=== PATIENT | male | born 1965 | race African-American/Black ===

== ENCOUNTER 2018-02-16 15:53 | Emergency (ER) | payer OTHER ==
[~2018-02-16] VITALS: Ht 170.2 cm; Wt 72.4 kg
[~2018-02-16 15:53] MED LIST: LEVAQUIN500 MG PO; MUCINEX1200 MG PO; NAPROSYN500 MG PO; PEPCID20 MG PO; REGLAN10 MG PO; ZANTAC300 MG PO
[2018-02-16 16:19] LABS: HEMATOCRIT 38.1 % (38.0-50.0); HEMOGLOBIN 13.1 G/DL (12.5-16.6); MCH 30.5 PG (29.0-34.0); MCHC 34.4 G/DL (30.0-36.0); MCV 88.8 FL (86-99); PLATELET COUNT 230 K/uL (156-360); RBC DIS.WIDTH-CV 13.2 % (11.8-14.6); RED BLOOD COUNT 4.29 M/uL (4.00-5.50); WHITE BLOOD COUNT 6.2 K/uL (4.1-10.2)
[2018-02-16 16:27] LABS: CHLORIDE 105 mEq/L (99-109); POTASSIUM 4.1 mEq/L (3.7-5.4); SODIUM 138 mEq/L (136-147)
[2018-02-16 16:29] LABS: GLUCOSE 110 mg/dL (70-99)
[2018-02-16 16:33] LABS: CREATININE 1.2 mg/dL (0.6-1.3); GFR ESTIMATE (CALCULATED) > 59 mL/min/ (58.99-99999); UREA NITROGEN (BUN) 15 mg/dL (9-23)
[2018-02-16] MEDS ORDERED: BENTYL20 MG PO (18:35)
[2018-02-16] MEDS ORDERED: FLEXERIL10 MG PO (18:36)
[2018-02-16] MEDS ORDERED: ZOFRAN4 MG PO (18:36)
[2018-02-16 19:14] VITALS: BP 117/84
== END 2018-02-16 19:15 | disposition home or self-care (01) ==
LOC: EME 15:53
DX: R10.9 Unspecified abdominal pain (principal); M54.2 Cervicalgia; K21.9 Gastro-esophageal reflux disease without esophagitis; F17.200 Nicotine dependence, unspecified, uncomplicated
CPT/HCPCS: 71046; 72040; 74018; 80048; 85027; 93005; 99281; 99284; J0500; J1885